=== PATIENT | male | born 1965 | race African-American/Black ===

== ENCOUNTER 2019-10-25 19:12 | Emergency (ER) | payer MEDICAID ==
[~2019-10-25] VITALS: Ht 180.3 cm; Wt 77.0 kg
[2019-10-25] MEDS ORDERED: IBUPROFEN 600MG TABLET PO STA (20:27)
[2019-10-26 00:45] VITALS: BP 116/59
== END 2019-10-26 01:58 | disposition home or self-care (01) ==
LOC: ER 19:12
DX: M25.561 Pain in right knee (principal); Z59.0 Homelessness
CPT/HCPCS: 73562; 99283